=== PATIENT | male | born 1945 | race Caucasian/White ===

== ENCOUNTER 2017-11-16 12:55 | Emergency (ER) | payer MEDICARE, BC ==
--- NOTE | 2017-11-16 15:01 | EDM.PDOC ---
ED HPI GENERAL MEDICAL PROBLEM - General Chief Complaint: Respiratory Problem Stated Complaint: BAD COLD, COUGH Time Seen by Provider: 11/16/17 14:50 Source of Information: Reports: Patient History Limitations: Reports: No Limitations - History of Present Illness INITIAL COMMENTS - FREE TEXT/NARRATIVE: 72 yo male spends 5/7 days here in the summer months from [place], [place]. He has no local doctor. Presents with rhinorrhea, sneezing, a cough that is somewhat productive. No fever or SOB. Quit smoking over 20 yrs ago. Onset: Gradual Onset Date: 11/14/17 Duration: Day(s):, Getting Worse Location: Reports: Face, Chest Quality: Reports: Other (no pain) Severity: Moderate Improves with: Reports: None Worsens with: Reports: Other (? time) Context: Reports: Other (former smoker) Associated Symptoms: Reports: Cough. Denies: Fever/Chills, Nausea/Vomiting, Shortness of Breath Treatments MANAGER POOL: Reports: Other (see below) (none) - Related Data Allergies Allergy/AdvReac Type Severity Reaction Status Date / Time No Known Allergies Allergy Verified 11/16/17 14:35 Home Meds: Home Meds Albuterol Sulfate [Proair Hfa] 8.5 gm IH ASDIRECTED PRN 11/16/17 [History] Aspirin [Lo-Dose Aspirin EC] 81 mg PO DAILY 11/16/17 [History] Lisinopril 40 mg PO DAILY 11/16/17 [History] Montelukast [Singulair] 10 mg PO DAILY 11/16/17 [History] amLODIPine Besylate [Amlodipine Besylate] 5 mg PO DAILY 11/16/17 [History] hydroCHLOROthiazide [Hydrochlorothiazide] 12.5 mg PO DAILY 11/16/17 [History] Past Medical History HEENT History: Reports: Cataract Cardiovascular History: Reports: Hypertension Respiratory History: Reports: Asthma, Sleep Apnea Musculoskeletal History: Reports: Arthritis Oncologic (Cancer) History: Reports: Basal Cell Carcinoma Dermatologic History: Reports: Benign Melanoma - Past Surgical History HEENT Surgical History: Reports: Cataract Surgery Social & Family History - Tobacco Use Smoking Status *Q: Former Smoker Used Tobacco, but Quit: Yes Month/Year Tobacco Last Used: 25 years ago - Caffeine Use Caffeine Use: Reports: Coffee - Recreational Drug Use Recreational Drug Use: No ED ROS GENERAL - Review of Systems Review Of Systems: See Below Constitutional: Reports: No Symptoms HEENT: Reports: Rhinitis Respiratory: Reports: Cough, Sputum (modest amts, sometimes yellow). Denies: Shortness of Breath, Wheezing, Pleuritic Chest Pain, Hemoptysis Cardiovascular: Reports: No Symptoms Endocrine: Reports: No Symptoms GI/Abdominal: Reports: No Symptoms : Reports: No Symptoms Musculoskeletal: Reports: No Symptoms Skin: Reports: No Symptoms Neurological: Reports: No Symptoms ED EXAM, GENERAL - Physical Exam Exam: See Below Exam Limited By: No Limitations General Appearance: Alert, WD/WN, No Apparent Distress, Obese Eye Exam: Bilateral Eye: Normal Inspection Ears: Normal External Exam, Normal Canal, Hearing Grossly Normal, Normal TMs Ear Exam: Bilateral Ear: Auricle Normal, Canal Normal, TM normal Nose: Clear Rhinorrhea, Other (pale, congested nasal mucosa) Throat/Mouth: Normal Inspection, Normal Lips, Normal Oropharynx, Normal Voice, No Airway Compromise Head: Atraumatic, Normocephalic Neck: Normal Inspection, Supple, Non-Tender Respiratory/Chest: No Respiratory Distress, Lungs Clear, Normal Breath Sounds, No Accessory Muscle Use Cardiovascular: Regular Rate, Rhythm, No Edema GI/Abdominal: Normal Bowel Sounds, Soft Extremities: Normal Inspection Neurological: Alert, Oriented, CN II-XII Intact, Normal Cognition, No Motor/ Sensory Deficits Psychiatric: Normal Affect, Normal Mood Skin Exam: Warm, Dry, Intact, Normal Color, No Rash Course - Vital Signs Last Recorded V/S: Last Vital Signs Temp 36.3 C 11/16/17 14:32 Pulse 89 11/16/17 14:32 Resp 18 11/16/17 14:32 BP 142/86 H 11/16/17 14:32 Pulse Ox 94 L 11/16/17 14:32 - Orders/Labs/Meds Labs: Laboratory Tests 11/16/17 Range/Units 14:57 WBC 8.9 (4.5-11.0) K/uL RBC 4.73 (4.30-5.90) M/uL Hgb 14.6 (12.0-15.0) g/dL Hct 44.1 (40.0-54.0) % MCV 93 (80-98) fL MCH 31 (27-31) pg MCHC 33 (32-36) % Plt Count 228 (150-400) K/uL Departure - Departure Time of Disposition: 15:41 Disposition: Home, Self-Care 01 Condition: Good Clinical Impression: Cough Allergic rhinitis Qualifiers: Allergic rhinitis trigger: unspecified Allergic rhinitis seasonality: unspecified Qualified Code(s): J30.9 - Allergic rhinitis, unspecified - Discharge Information *PRESCRIPTION DRUG MONITORING PROGRAM REVIEWED*: No *COPY OF PRESCRIPTION DRUG MONITORING REPORT IN PATIENT PONCE: No Instructions: Nasal Allergies, [id number] Referrals: PCP,None [Primary Care Provider] - Forms: ED Department Discharge Additional Instructions: Use Flonase per package instructions. Take prednisone as directed until gone. Take cetirizine 10 mg daily. Take Robitussin AC syrup 1-2 tsp every 4 hrs as needed for cough. Recheck as needed.
== END 2017-11-16 15:50 | disposition home or self-care (01) ==
LOC: JP.ED 12:55
DX: J30.9 Allergic rhinitis, unspecified (principal); I10 Essential (primary) hypertension; Z87.891 Personal history of nicotine dependence
CPT/HCPCS: 36415; 85027; 99284